=== PATIENT | female | born 1935 | race Caucasian/White ===

== ENCOUNTER 2017-07-26 10:13 | Outpatient (CLI) | payer MEDICARE ==
--- NOTE | 2017-07-26 12:00 | RAD ---
TWO VIEWS LUMBAR SPINE: HISTORY: Back pain. TECHNIQUE: AP and lateral views of the lumbar spine are obtained on 07/26/2017. FINDINGS: Two views of the lumbar spine demonstrate pedicle screws with fusion of the L3, L4, and L5 levels. D egenerative changes are seen at the L2-L3 intervertebral disk space, as well as the L5-S1 disk spaces . This is compatible with severe degenerative changes above and below the fusion level. No other acute lumbar spine fracture is seen. Heterotopic bone is seen adjacent to the right hip. IMPRESSION: Surgical changes seen in the lumbar spine. No significant interval changes noted since the previous comparison radiograph from 04/28/2017. POS: [facility]
== END 2017-07-26 10:14 | disposition home or self-care (01) ==
LOC: TBSIIMAG 10:13
PROVIDERS: ATTEND Neurological Surgery
DX: M54.16 Radiculopathy, lumbar region (principal)
CPT/HCPCS: 72100

== ENCOUNTER 2019-04-28 00:33 | Inpatient (IN) | payer MEDICARE ==
[2019-04-28 01:06] LABS: Bacteria/HPF 2+ HPF (None Seen); Bilirubin Negative (Negative); Blood, Urine Trace (Negative); Clarity Turbid (Clear); Glucose, Urine (Dipstick) Normal (Negative); Leukocyte 500 Leu/uL (Negative); Nitrite 1+ (Negative); Protein, Urine (Dipstick) 100 mg/dL (Neg-Trace); Squamous Epithelial 0-3 HPF (0-3); Urobilinogen Normal mg/dL (Less than 2); WBC/HPF Greater than 50 HPF (0-3)
[2019-04-28 01:19] LABS: Hemoglobin 9.8 g/dL (12.0-16.0); Mean Corpuscular HGB CONC 32.3 g/dL (32.0-36.0); Mean Corpuscular Hemoglobin 32.3 pg (27.0-31.0); Mean Corpuscular Volume 99.9 fL (78.0-98.0); Mean Platelet Volume 6.1 fL (7.4-10.4); Platelet Count 218 thou/uL (130-400); Red Blood Cell (RBC) Count 3.02 mill/uL (4.20-5.40); White Blood Cell (WBC) Count 11.3 thou/uL (4.8-10.8)
[2019-04-28] MEDS ORDERED: Piperacillin/Tazobactam 4.5 GM VIAL ONE (01:19)
[2019-04-28] MEDS ORDERED: Acetaminophen 500 MG TAB ONE (01:19)
[2019-04-28 01:21] LABS: ALT (SGPT) 25 U/L (8-55); AST (SGOT) 41 U/L (5-34); Albumin 3.9 g/dL (3.4-4.8); Alkaline Phosphatase 100 U/L (40-150); Anion Gap 18 mmol/L (10-20); BUN (Urea Nitrogen) 22 mg/dL (9.8-20.1); Band 15 % (5-11); Bilirubin, Total 0.3 mg/dL (0.2-1.2); Calc. Creatinine Clearance 0 mL/min (70-130); Calcium 8.8 mg/dL (7.8-10.44); Carbon Dioxide 24 mmol/L (23-31); Chloride 94 mmol/L (98-107); Estimated GFR-MDRD 70; Globulin 2.9 g/dL (2.4-3.5); Glucose 112 mg/dL (83-110); Hypochromia SLIGHT = 6-15 cells (100X) (0-5/hpf); Lymphocytes 2 % (21-51); MDiff Complete? YES; Monocytes 1 % (0-10); Neutrophil 82 % (42-75); Platelet Morphology Comment Appears Adequate; Potassium 3.8 mmol/L (3.5-5.1); Protein, Total 6.8 g/dL (6.0-8.3); Sodium 132 mmol/L (136-145)
[2019-04-28 01:44] LABS: CKMB 1.3 ng/mL (0-6.6)
[2019-04-28 04:57] LABS: Troponin I 0.237 ng/mL (< 0.028)
[2019-04-28 06:02] VITALS: BMI 22.7
[2019-04-28] MEDS ORDERED: Ondansetron ODT 4 MG TAB PO PRN (06:03)
[2019-04-28] MEDS ORDERED: Acetaminophen 650 MG Suppository PR PRN (06:03)
[2019-04-28] MEDS ORDERED: Ondansetron PF 4 MG/2 ML Vial IVP PRN (06:03)
[2019-04-28] MEDS ORDERED: Prevnar 13-Val Conj/PF 0.5 ML SYRINGE IM ONE (06:45)
[2019-04-28] MEDS ORDERED: HYDROcodone/Acetaminophen 10/325 mg Tablet PO SCH ×2 (07:00)
--- NOTE | 2019-04-28 07:17 | HP ---
CODE STATUS: Full code. TIME OF EVALUATION: 6:00 a.m. PRIMARY CARE PHYSICIAN: Dr. Shama Antonio. CHIEF COMPLAINT: Generalized weakness and change in mental status. HISTORY OF PRESENT ILLNESS: This is an 83-year-old female patient with past medical history of atrial fibrillation, indwelling Pichardo catheter, and hypothyroidism, came to the hospital after having severe generalized weakness associated with change in mental status. No clear triggers, no alleviating factors. The symptoms started insidiously and has been gradually getting worse. The symptoms are severe. REVIEW OF SYSTEMS: All other systems were reviewed and negative except for the findings mentioned above. PAST MEDICAL HISTORY: As mentioned in the HPI. PAST SURGICAL HISTORY: Significant for back surgery; knee replacement, multiple ; right foot surgery. FAMILY HISTORY: Reviewed, noncontributory to current presentation. PSYCHIATRIC HISTORY: No previous psych history. SOCIAL HISTORY: No alcohol. No drugs. No smoking history. KNOWN ALLERGIES: No known drug allergies. REPORTED MEDICATIONS: 1. Art. 2. Metoprolol. 3. Gabapentin. 4. Pantoprazole. 5. Potassium chloride. 6. Vitamin D3. 7. Levothyroxine. 8. Promethazine. 9. Oxybutynin chloride. 10. Iron. 11. B12. 12. Colace. 13. Amitriptyline. 14. Aspirin 81. 15. Amiodarone. 16. Furosemide. 17. Clopidogrel. 18. Myrbetriq. PHYSICAL EXAMINATION: VITAL SIGNS: On presentation; blood pressure 88/49 with heart rate 101, respiratory rate was 20, temperature 102.9, pain was 7/10, and oxygen saturation was 96% on room air. The patient got IV fluids. The blood pressure improving, after some time did drop again and then after A third liter, blood pressure has been sustaining in the good range. GENERAL APPEARANCE: The patient is alert, oriented, not in acute distress. The mentation has improved. HEENT: Eyes, normal conjunctivae. Moist oral mucosa. Anicteric. No JVD. RESPIRATORY: Bilateral air entry. No rales. No wheezes. Symmetric expansion. CARDIOVASCULAR: Normal rate. Regular rhythm. No murmurs. No gallop. No edema. ABDOMEN: Soft. Normal bowel sounds. MUSCULOSKELETAL: Baseline range of motion and strength. SKIN: Warm, intact. No pallor. No rash. No redness. GENITOURINARY: The patient has indwelling suprapubic catheter. NEURO: The patient has bilateral lower extremity dysesthesias from peripheral neuropathy. No focal weakness. IMAGING DATA: Radiology; the patient has a chest x-ray, it was negative. No acute cardiopulmonary process. Abdomen and pelvis CT scan showed colon is moderately and diffusely distended with fluids and semisolid food, the official report from Radiology is pending. LABORATORY DATA: Reviewed. The patient has a white count 13.3, hemoglobin 9.8 , MCV 99.9, and platelet count 218. Sodium is 132, potassium 3.8, chloride 94, carbon dioxide 24, anion gap 18, BUN 22, creatinine 0.79, GFR 70, and glucose 112. LFTs were negative. Troponin 0.231, the second one 0.237. The urine was positive with elevated white count. ASSESSMENT AND PLAN: The patient will be placed in the hospital with following medical problems: 1. Urinary tract infection. The patient has a positive UA. We will follow up cultures. We will treat accordingly. 2. Non-ST segment elevation myocardial infarction with troponin 0.231 on 2 occasions. This is likely secondary to non-ST segment elevation myocardial infarction type 2 secondary to sepsis. We will trend troponins. We will monitor. We will treat accordingly. 3. Hyponatremia, sodium 132. We will monitor and treat accordingly. This is mild, no need for any acute intervention at this point. 4. Chronic normocytic anemia. This is likely secondary to anemia of chronic disease, this is stable. We will monitor, can be followed as outpatient. 5. Severe sepsis. The patient has recurrent episodes of hypotension that has improved after aggressive hydration. We will continue to monitor in IMCU. If blood pressure keeps dropping, the patient may need vasopressors. The patient is already on antibiotics. We will continue for now. We will follow sensitivity and treat accordingly. 6. Hypothyroidism. Continue hormone replacement. 7. History of atrial fibrillation. The patient presented with rate control.reconcile home meds 8. Deep venous thrombosis prophylaxis. Job ID: [id number] [facility]
[2019-04-28] MEDS ORDERED: Metoprolol Tartrate 5 MG/5 ML VIAL ONE (07:54)
[2019-04-28] MEDS ORDERED: Metoprolol Tartrate 5 MG/5 ML VIAL IVP SCH (08:00)
--- NOTE | 2019-04-28 08:09 | CT ---
PRELIMINARY REPORT/[facility]/EMERGENCY AFTER HOURS PROCEDURE: EXAM: CT Abdomen and Pelvis With Contrast EXAM DATE/TIME: 04/28/2019 1:39 AM CLINICAL HISTORY: 83 years old, female; Abdominal pain; Prior surgery; Patient HX: Er 5. 83 y/o F presents to ED via EM S transport for generalized weakness. PT C/O abd pain (generalized), constipation. Surgical HX of hys terectomy TECHNIQUE: Imaging protocol: Computed tomography images of the abdomen and pelvis with intravenous contrast. COMPARISON: No relevant prior studies available. FINDINGS: Tubes, catheters and devices: Suprapubic cystostomy catheter. Urinary bladder otherwise unremarkable. Lungs: Bibasilar pulmonary scarring/subsegmental atelectasis. Heart: Cardiomegaly. Cardiac device present. Liver: Normal. No mass. Gallbladder and bile ducts: Prior cholecystectomy. There is intra-and extrahepatic biliary ductal dil atation. Findings are likely a result of age and postcholecystectomy state given that there is no vis ible obstructing choledocholithiasis or pancreatic head mass and the distal CBD tapers normally as it approaches the duodenum. Pancreas: Normal. No ductal dilation. Spleen: Normal. No splenomegaly. Adrenals: Normal. No mass. Kidneys and ureters: Normal. No hydronephrosis. Stomach and bowel: Colon is moderately and diffusely distended with fluid and semisolid stool. Mild g aseous distention of the nondependent portions of the bowel may contribute to patient discomfort but is not pathologic. No bowel wall thickening or intestinal obstruction. Appendix: Appendix not visualized. No evidence of appendicitis. Intraperitoneal space: Normal. No free air. No significant fluid collection. Vasculature: Normal. No abdominal aortic aneurysm. Lymph nodes: Normal. No enlarged lymph nodes. Bladder: See Tubes, Catheters And Devices Finding. Reproductive: Prior hysterectomy. Bones/joints: Vertebral fusion hardware. Soft tissues: Unremarkable. IMPRESSION: Colon is moderately and diffusely distended with fluid and semisolid stool. Thank you for allowing us to participate in the care of your patient. Dictated and Authenticated by: Jos Ralph MD 04/28/2019 2:45 AM Central Time ([place] & [place]) FINAL REPORT ABDOMEN AND PELVIS CT WITH CONTRAST: FINDINGS/IMPRESSION: The report is in general agreement with the above-provided preliminary interpretation. There is extensive dilatation of the colon due to fluid and stool which may be on the basis of a coli tis. Given the degree of colonic distention at the rectum, there is a component of longstanding cons tipation. Slight wall prominence of this region is present without significant surrounding inflammat ion making stercoral colitis less likely. Correlate clinically in this regard. POS: [facility]
[2019-04-28 08:18] LABS: Troponin I 0.257 ng/mL (< 0.028)
[2019-04-28] MEDS ORDERED: POLYETHYLENE GLYCOL 17 GM PO PRN (08:28)
[2019-04-28] MEDS ORDERED: Digoxin 0.5 MG/2 ML AMP SLOW IVP SCH (08:30)
--- NOTE | 2019-04-28 08:36 | PDOC.HOSPP ---
- Subjective Encounter Date: 04/28/19 Encounter Time: 08:34 Subjective: Called by RN to see patient due to afib RVR plus low bp - Objective Vital Signs & Weight: Vital Signs (12 hours) Temp Pulse Ox 04/28/19 07:22 99.9 F H 04/28/19 05:45 96 04/28/19 05:25 98.9 F Weight Weight 132 lb 5 oz Most Recent Monitor Data Heart Rate from ECG 122 NIBP 147/103 NIBP BP-Mean 117 Respiration from ECG 29 SpO2 91 Result Diagrams: 04/28/19 00:44 04/28/19 00:44 ROS - Medication Medications: Active Medications Generic Name Dose Route Start Last Admin Trade Name Freq PRN Reason Stop Dose Admin Hydrocodone Bitart/Acetaminophen 1 tab 04/28/19 07:00 04/28/19 07:30 [place] 10/325 PO 04/28/19 09:00 1 tab NOW JOEL Administration - Exam NAD, awake alert, ill appearing Eye: PERRL, anicteric sclera, scleral icterus ENT: normocephalic atraumatic, no oropharyngeal lesions, moist mucosa, dry oral mucosa Neck: supple, symmetric, no JVD, no thyromegaly, no lymphadenopathy, no carotid bruit, JVD Heart: RRR, no murmur, no gallops, no rubs, normal peripheral pulses, irregular , diminshed peripheral pulses, murmur present, II/IV, III/IV Respiratory: CTAB, no wheezes, no rales, no ronchi, normal chest expansion, no tachypnea, normal percussion, rales, rhonchi, tachypneic, wheezes Gastrointestinal: soft, non-tender, non-distended, normal bowel sounds, no palpable masses, no hepatomegaly, no splenomegaly, no bruit, no guarding, no rigidity, tender to palpation, distended, diminished bowl sounds, voluntary guarding Hosp A/P - Plan Digoxin 0.25 mg IVP, lopressor 5 mg IVP, cardiology and ID consulted.
[2019-04-28] MEDS ORDERED: Ibuprofen 600 MG TAB PO PRN (08:37)
[2019-04-28] MEDS ORDERED: Polyethylene Glycol 3350 17 GM Packet PO PRN (08:38)
[2019-04-28] MEDS ORDERED: Sodium Chloride 0.9% 500 ML IV SCH (08:45)
[2019-04-28] MEDS: Acetaminophen 325 MG TAB PO PRN (08:48)
[2019-04-28] MEDS: Enoxaparin Sodium 40 MG/0.4 ML SYRINGE SC SCH (08:50)
[2019-04-28] MEDS: Ferrous Sulfate 325 MG TAB PO SCH (08:50)
[2019-04-28] MEDS: Gabapentin 300 MG CAP PO SCH ×4 (08:50→20:36)
[2019-04-28] MEDS: Cyanocobalamin (Vitamin B-12) 1,000 MCG TAB PO SCH (08:50)
[2019-04-28] MEDS: Oxybutynin ER 5 MG TAB PO SCH (08:51)
[2019-04-28] MEDS: Levothyroxine Sodium 50 MCG TAB PO SCH (08:51)
[2019-04-28] MEDS: Metoprolol Tartrate 25 MG TAB PO SCH (08:51)
[2019-04-28] MEDS ORDERED: Non-Formulary Item 1 EACH (Iron [Iron] 27 MG) PO SCH (09:00)
[2019-04-28] MEDS ORDERED: Non-Formulary Item 1 EACH (Cholecalciferol (Vitamin D3) [Vitamin D3] 1,000 UNIT) PO SCH (09:00)
[2019-04-28] MEDS ORDERED: Potassium Chloride 20 MEQ TAB PO SCH ×2 (09:00)
[2019-04-28] MEDS ORDERED: CYANOCOBALAMIN 1000 MG PO SCH (09:00)
[2019-04-28] MEDS ORDERED: Metoprolol Tartrate 50 MG TAB PO SCH (09:00)
--- NOTE | 2019-04-28 09:09 | RAD ---
CHEST 1 VIEW: HISTORY: Sepsis. FINDINGS: Diminished lung volume, likely due to poor inspiratory effort. Patchy interstitial opacities are pre sumed to be due to chronic change. Atherosclerosis of the aorta. Normal cardiac silhouette. Left-s ided transvenous pacemaker terminates in the region of the right atrium and right ventricle. IMPRESSION: No acute cardiopulmonary process. POS: [facility]
[2019-04-28] MEDS: Piperacillin/Tazobactam 4.5 GM in Sodium Chloride 0.9% 100 ML IVPB SCH ×2 (09:25→17:56)
[2019-04-28] MEDS ORDERED: ISOVUE-370 76%-LOCM 1 ML ONE (11:12)
--- NOTE | 2019-04-28 11:25 | CON ---
DATE OF CONSULTATION: HISTORY OF PRESENT ILLNESS: Melisa Gallegos is an 83-year-old female, who presented to the ER with marked weakness, somewhat confusion and fever. She had a rapid heart rate. Family apparently called 911 as per the history. She is in the MICU. REASON FOR CONSULTATION: She is probably uroseptic. PAST MEDICAL HISTORY: Pertinent for hypertension, neuropathy, previous apparently SVT. PAST SURGICAL HISTORY: Apparently included multiple including gallbladder surgery, hernia surgery, hysterectomy, knee surgery, ankle surgery, back surgery. SOCIAL HISTORY: Tobacco, none. Alcohol, none. HOME MEDICATIONS: Apparently include: 1. Phenergan. 2. Protonix. 3. Oxybutynin. 4. Metoprolol 25. 5. Synthroid 50. 6. Hydrocodone. 7. Gabapentin. 8. She now is on Zosyn. ALLERGIES: NONE. REVIEW OF SYSTEMS: Otherwise, 10-point negative. PHYSICAL EXAMINATION: VITAL SIGNS: Blood pressure 81/41, temperature 100.1, pulse is 80, saturations . GENERAL: Awake, alert, responsive. HEENT: Mucous membranes are dry. CHEST: No wheezing. CARDIAC: Normal S1, S2. No gallops. ABDOMEN: No masses. LABORATORY DATA: Sodium 132. Troponin is elevated. Urine shows UTI. White count 11,000, H and H 9 and 30, platelet count is normal, 82 segs, 15 bands. ASSESSMENT: 1. Urosepsis. 2. Supraventricular tachycardia. 3. Hypertension. PLAN: I have ordered IV fluids, cortisol level. Supportive care. Continue home medication. Pulmonary will follow while in the MICU. Consultation note, 70 minutes, 50% direct patient care. Job ID: [id number]
[2019-04-28] MEDS: Hydrocortisone Sod Succ/PF 100 mg/2 ml Vial IVP SCH ×3 (11:38→23:47)
--- NOTE | 2019-04-28 12:05 | CON ---
DATE OF CONSULTATION: 04/28/2019 REASON FOR CONSULTATION: Atrial fibrillation with sepsis. HISTORY OF PRESENT ILLNESS: Ms. Gallegos is an 83-year-old woman with past history of atrial fibrillation. The history is very limited. She is confused. She is currently on amiodarone, but not on anticoagulation therapy. She states her is Dr. Nj. She states her stripping and booking machine operator is in consultation, but cannot state who it is. She has not been seen or followed by [facility] in the past. She recently presented with sepsis. This is likely UTI. Fever of 103. PAST MEDICAL HISTORY: Atrial fibrillation, knee surgery, back surgery, foot surgery. SOCIAL HISTORY: No current tobacco or alcohol use. ALLERGIES: NONE. MEDICATIONS: Include metoprolol, [place], gabapentin, pantoprazole, potassium, levothyroxine, Plavix, amiodarone, aspirin, amitriptyline, Colace, iron, oxybutynin, promethazine. REVIEW OF SYSTEMS: Unobtainable. PHYSICAL EXAMINATION: GENERAL: The patient is confused. VITAL SIGNS: Blood pressure 81/48, pulse one teens to 120s, T-max 102.5. Current temperature 100.1. NEUROLOGIC: The patient is alert and oriented x3 with no focal neurologic deficits. HEENT: Sclerae without icterus. Mouth has moist mucous membranes with normal pallor. NECK: No JVD. Carotid upstroke brisk. No bruits bilaterally. LUNGS: Clear to auscultation with unlabored respirations. BACK: No scoliosis or kyphosis. CARDIAC: Irregularly irregular rhythm with normal S1 and S2. No S3 or S4 noted. No significant rubs, murmurs, thrills, or gallops noted throughout the precordium. PMI is not displaced. There is no parasternal heave. ABDOMEN: Soft, nontender, nondistended. No peritoneal signs present. No hepatosplenomegaly. No abnormal striae. EXTREMITIES: 2+ femoral and 2+ dorsalis pedis pulses. No cyanosis, clubbing, or edema. SKIN: No gross abnormalities. LABORATORY DATA: Include white blood cell count 11.3, hemoglobin 9.8, hematocrit 30.2, platelet count of 218. Creatinine 0.79. Peak troponin 0.2. Previous echo none. IMPRESSION: 1. Likely urosepsis. 2. Atrial fibrillation, likely chronic. 3. Encephalopathy. RECOMMENDATIONS: At this point, we will give IV fluids with a 500 mL bolus given hypotension. This will likely help with her heart rate. We will also add digoxin if needed and add Cardizem instead of beta connie therapy. There seems to be less effect with hypotension. Continue antibiotic treatment. We will try and obtain further records from her family. Job ID: [id number]
[2019-04-28] MEDS ORDERED: Norepinephrine 8 MG in Sodium Chloride 0.9% 250 ML 242 ML IVPB SCH (13:15)
[2019-04-28] MEDS ORDERED: Meropenem 1 GM in Sodium Chloride 0.9% 100 ML IVPB SCH (14:00)
[2019-04-28] MEDS: MEROPENEM 1 GM/50 ML 1 GM in Premix Bag 1 BAG IVPB SCH ×2 (15:27→21:29)
--- NOTE | 2019-04-28 15:42 | RAD ---
Exam: Chest one view HISTORY:Central line placement Comparison: 04/28/2019 FINDINGS: Cardiac silhouette:Stable cardiac silhouette. Aorta: Unremarkable Pulmonary vessels: Normal Costophrenic angles: Stable blunting of the left and right costophrenic angles LUNGS: Persistent diminished lung volumes with elevation of the right hemidiaphragm. Patchy interstit ial and alveolar opacities do remain. Lines and tubes: Interval placement of a right-sided vascular catheter with the distal tip projecting over the right atrium. Stable left-sided transvenous pacemaker. Pneumothorax: None Osseous abnormalities: None IMPRESSION: 1. Interval placement of a right-sided vascular catheter. No pneumothorax.
--- NOTE | 2019-04-28 17:27 | PDOC.OP ---
Operative Note - Operative Note Operative Note: PROCEDURE: Right internal jugular central venous catheter placement with ultrasound guidance. DATE: 04/28/2019 SURGEON: Sheyla Mckinley M.D. PREOPERATIVE DIAGNOSIS: Hypotension requiring pressors, presumably due to urosepsis. PROCEDURE IN DETAIL: After informed consent was obtained the patient was prepped and draped in standard sterile fashion and placed in Trendelenburg position. A sterile ultrasound probe was used to identify the patent compressible right internal jugular vein and local anesthesia was infused the skin and subcutaneous tissues overlying this. The vein was accessed under direct ultrasound guidance and a wire threaded through the needle. The needle was removed leaving the wire in place which was confirmed by ultrasound to be within the patent compressible vein. The skin was incised and the tract was dilated. A triple-lumen catheter was placed over the wire and secured to the skin at 4 locations. A Biopatch and Tegaderm dressing was placed. All 3 ports easily aspirated dark venous nonpulsatile blood and easily flushed without resistance. A portable chest x-ray was ordered to check position. There were no immediate complications. Estimated blood loss is minimal. There were no specimens. Of note patient had bruising of the skin even just with injection of local through a 23-gauge needle. She had oozing from all of the injection sites and around her catheter requiring pressure dressing. She takes Plavix but no other blood thinners.
--- NOTE | 2019-04-28 21:42 | PDOC.EVN ---
Event Note - Event Note Event Note: Patient takes soma at night along with several other home medications. Day team to please address appropriate home meds to be restarted for this patient at night.
[2019-04-29] MEDS: Piperacillin/Tazobactam 4.5 GM in Sodium Chloride 0.9% 100 ML IVPB SCH (00:30)
[2019-04-29] MEDS ORDERED: hydrALAZINE 20 MG/ML VIAL SLOW IVP SCH (02:30)
[2019-04-29] MEDS: Acetaminophen 325 MG TAB PO PRN ×2 (03:57→20:42)
[2019-04-29 04:48] LABS: Band 24 % (5-11); Hemoglobin 8.1 g/dL (12.0-16.0); Lymphocytes 10 % (21-51); MDiff Complete? YES; Mean Corpuscular HGB CONC 31.2 g/dL (32.0-36.0); Mean Corpuscular Hemoglobin 31.4 pg (27.0-31.0); Monocytes 2 % (0-10); Neutrophil 64 % (42-75); Platelet Count 127 thou/uL (130-400); Platelet Morphology Comment Appears Adequate; RBC Distribution Width 16.9 % (11.5-14.5); Red Blood Cell (RBC) Count 2.59 mill/uL (4.20-5.40); White Blood Cell (WBC) Count 21.9 thou/uL (4.8-10.8)
[2019-04-29 04:50] LABS: Anion Gap 16 mmol/L (10-20); BUN (Urea Nitrogen) 23 mg/dL (9.8-20.1); Calc. Creatinine Clearance 56 mL/min (70-130); Calcium 8.7 mg/dL (7.8-10.44); Carbon Dioxide 20 mmol/L (23-31); Chloride 99 mmol/L (98-107); Estimated GFR-MDRD 74; Glucose 97 mg/dL (83-110); Potassium 4.4 mmol/L (3.5-5.1); Sodium 131 mmol/L (136-145)
[2019-04-29] MEDS: Hydrocortisone Sod Succ/PF 100 mg/2 ml Vial IVP SCH (05:33)
[2019-04-29] MEDS: MEROPENEM 1 GM/50 ML 1 GM in Premix Bag 1 BAG IVPB SCH ×3 (05:33→22:00)
[2019-04-29] MEDS: HYDROcodone/Acetaminophen 10/325 mg Tablet PO PRN ×2 (08:32→12:34)
--- NOTE | 2019-04-29 08:32 | PDOC.CTH ---
Cardiology Progress Note - Subjective Doing much better. Off pressors. BP elevated. In SR - Objective Vital Signs Temp Pulse BP 04/29/19 04:00 97.0 F L 04/29/19 02:30 71 200/104 H 04/28/19 23:00 97.2 F L Weight 132 lb 7.965 oz 04/28/19 04/29/19 04/30/19 06:59 06:59 06:59 Intake Total 3080 Output Total 2 Balance 1058 - Physical Examination General/Neuro: NAD Neck: no JVD present Lungs: unlabored respirations Heart: PMI normal, RRR Abdomen: no HSM, NT/ND, soft Extremities: + femoral B - Labs Result Diagrams: 04/29/19 04:13 04/29/19 04:13 Troponin/CKMB CK-MB (CK-2) 1.3 ng/mL (0-6.6) 04/28/19 00:44 Troponin I 0.257 ng/mL (< 0.028) H 04/28/19 07:23 - Assessment/Plan Afib Urosepsis Dementia Hypotension Doing better Restart HTN meds Abx Avoid ACT for now given anemia of unknown etiology and unknown if afib secondary to underlying condition Add BB Pt on amiodarone but not sure who a p mechanic is. Will discuss with family
[2019-04-29] MEDS: Ferrous Sulfate 325 MG TAB PO SCH (08:33)
[2019-04-29] MEDS: Enoxaparin Sodium 40 MG/0.4 ML SYRINGE SC SCH (08:33)
[2019-04-29] MEDS: Metoprolol Tartrate 25 MG TAB PO SCH ×2 (08:33→20:05)
[2019-04-29] MEDS: Levothyroxine Sodium 50 MCG TAB PO SCH (08:34)
[2019-04-29] MEDS: Amiodarone 200 MG TAB PO SCH (08:34)
[2019-04-29] MEDS: Gabapentin 300 MG CAP PO SCH ×3 (08:34→20:05)
[2019-04-29] MEDS: Sodium Chloride 0.9% 1,000 ML IV SCH (08:40)
[2019-04-29] MEDS: Cyanocobalamin (Vitamin B-12) 1,000 MCG TAB PO SCH (08:40)
--- NOTE | 2019-04-29 09:30 | PRG ---
DATE OF SERVICE: 04/29/2019 SUBJECTIVE: Alicja Gallegos was transferred yesterday from MICU to ICU because she was hypertensive. OBJECTIVE: VITAL SIGNS: Her blood pressure is pretty much resolved at 176/100, pulse 120, respiratory rate 18. GENERAL: Awake, alert, responsive. HEAD, EYES, EARS, NOSE: She is having some pain generalized. CHEST: No wheezing or crackles. CARDIAC: Normal S1, S2. No gallops. ABDOMEN: No masses. LABORATORY DATA: Blood cultures growing E. coli. White count 21,000, H and H 8 and 26, platelet count is normal. Sodium 131. IMPRESSION: 1. Urosepsis, rare E. coli. 2. Questionable pneumonia. 3. Severe deconditioning. 4. DNR. 5. Hyponatremia. PLAN: Hydrocortisone will be discontinued. Cortisol level is elevated. We will continue meropenem. We will deescalate once we get all the cultures back. Cardiac SVT status is pretty much resolved. Hypertension was probably secondary to medication and sepsis. PT, supportive care. One half hour of critical time. Job ID: [id number]
[2019-04-29] MEDS: Oxybutynin ER 5 MG TAB PO SCH (09:39)
--- NOTE | 2019-04-29 13:05 | PDOC.HOSPP ---
- Subjective Encounter Date: 04/29/19 Encounter Time: 13:03 Subjective: Patient seen and examined, states she's in a lot of pain and would like pain medications, no other issues, son and daughter in law at bedside, all questions answered. - Objective Vital Signs & Weight: Vital Signs (12 hours) Temp Pulse BP 04/29/19 12:00 98 F 04/29/19 08:00 98.2 F 04/29/19 04:00 97.0 F L 04/29/19 02:30 71 200/104 H Weight Weight 132 lb 7.965 oz Most Recent Monitor Data Heart Rate from ECG 76 NIBP 157/100 NIBP BP-Mean 119 Respiration from ECG 17 SpO2 100 I&O: 04/28/19 04/29/19 04/30/19 06:59 06:59 06:59 Intake Total 3080 360 Output Total 2021 1400 Balance 1058 -1040 Result Diagrams: 04/29/19 04:13 04/29/19 04:13 ROS - Medication Medications: Active Medications Generic Name Dose Route Start Last Admin Trade Name Freq PRN Reason Stop Dose Admin Acetaminophen 650 mg 04/28/19 06:03 04/29/19 03:57 Tylenol PO 650 mg Q4H PRN Administration Headache/Fever/Mild Pain (1-3) Hydrocodone Bitart/Acetaminophen 1 tab 04/28/19 08:31 04/29/19 12:34 [place] 10/325 PO 1 tab Q4H PRN Administration Pain Amiodarone HCl 200 mg 04/29/19 09:00 04/29/19 08:34 Cordarone PO 200 mg DAILY JOEL Administration Cholecalciferol 1,000 units 04/28/19 09:00 04/29/19 08:40 Vitamin D3 PO 1,000 units DAILY JOEL Administration Cyanocobalamin 1,000 mcg 04/28/19 09:00 04/29/19 08:40 Vitamin B-12 PO 1,000 mcg DAILY JOEL Administration Enoxaparin Sodium 40 mg 04/28/19 09:00 04/29/19 08:33 Lovenox SC 40 mg 0900 JOEL Administration Ferrous Sulfate 325 mg 04/28/19 09:00 04/29/19 08:33 Feosol PO 325 mg DAILY JOEL Administration Gabapentin 600 mg 04/28/19 20:28 04/29/19 08:34 Neurontin PO 600 mg TID JOEL Administration Meropenem 1 gm/ Device 50 mls @ 100 mls/hr 04/28/19 14:00 04/29/19 05:33 IVPB 50 mls Q8HR JOEL Administration Norepinephrine Bitartrate 8 mg 250 mls @ 0 mls/hr 04/28/19 13:15 04/28/19 15: 19 / Sodium Chloride IVPB 250 mls INF JOEL Administration Protocol Titrate Sodium Chloride 1,000 mls @ 50 mls/hr 04/29/19 08:00 04/29/19 08:40 Normal Saline 0.9% IV 1,000 mls .Q20H JOEL Administration Levothyroxine Sodium 50 mcg 04/28/19 09:00 04/29/19 08:34 Synthroid PO 50 mcg DAILY JOEL Administration Oxybutynin Chloride 5 mg 04/28/19 09:00 04/29/19 09:39 Ditropan Xl PO 5 mg DAILY JOEL Administration Pantoprazole Sodium 40 mg 04/28/19 09:00 04/29/19 08:34 Protonix PO 40 mg DAILY JOEL Administration Potassium Chloride 20 meq 04/28/19 21:00 04/29/19 08:33 Klor-Con PO 20 meq BID JOEL Administration Sodium Chloride 10 ml 04/28/19 09:00 04/29/19 08:35 Flush - Normal Saline IVF 10 ml Q12HR JOEL Administration - Exam awake alert General - other findings: +appears in pain Eye: PERRL, anicteric sclera ENT: normocephalic atraumatic, no oropharyngeal lesions Neck: supple, symmetric, no JVD, no thyromegaly Heart: RRR, no murmur, no gallops, no rubs Respiratory: CTAB, no wheezes, no rales, no ronchi Gastrointestinal: soft, non-tender, non-distended, normal bowel sounds Extremities: no cyanosis, no clubbing Hosp A/P (1) Urinary tract infection Status: Acute (2) Sepsis Code(s): A41.9 - SEPSIS, UNSPECIFIED ORGANISM Status: Acute (3) Hypothyroidism Code(s): E03.9 - HYPOTHYROIDISM, UNSPECIFIED Status: Acute (4) Hypotension Status: Acute - Plan - change pain medican regimen - cont with IV abx - cultures pending - labs in AM - hgb stable, low but stable - DC ibuprofen, risk of renal injury - vitals stable - case and plan d[facility] they understood and agreed with this plan.
[2019-04-29] MEDS: Morphine 2 MG/ML SYRINGE IVP PRN ×2 (15:59→20:03)
[2019-04-30] MEDS: Promethazine 25 MG TAB PO PRN ×2 (00:02→21:14)
[2019-04-30] MEDS: Morphine 2 MG/ML SYRINGE IVP PRN ×4 (00:02→17:24)
[2019-04-30] MEDS: Acetaminophen 325 MG TAB PO PRN ×3 (00:57→21:14)
[2019-04-30] MEDS: Sodium Chloride 0.9% 1,000 ML IV SCH (02:48)
[2019-04-30 04:43] LABS: Anion Gap 16 mmol/L (10-20); BUN (Urea Nitrogen) 25 mg/dL (9.8-20.1); Calc. Creatinine Clearance 69 mL/min (70-130); Calcium 8.6 mg/dL (7.8-10.44); Carbon Dioxide 22 mmol/L (23-31); Chloride 98 mmol/L (98-107); Estimated GFR-MDRD Greater than 90; Glucose 65 mg/dL (83-110); Potassium 4.1 mmol/L (3.5-5.1); Sodium 132 mmol/L (136-145)
[2019-04-30] MEDS: MEROPENEM 1 GM/50 ML 1 GM in Premix Bag 1 BAG IVPB SCH ×3 (05:21→20:06)
[2019-04-30 06:01] LABS: Band 9 % (5-11); Hemoglobin 7.5 g/dL (12.0-16.0); Hypochromia SLIGHT = 6-15 cells (100X) (0-5/hpf); Lymphocytes 14 % (21-51); MDiff Complete? YES; Macrocytosis SLIGHT = 6-15 cells (100X) (0-5/hpf); Mean Corpuscular HGB CONC 31.6 g/dL (32.0-36.0); Mean Corpuscular Hemoglobin 32.3 pg (27.0-31.0); Mean Platelet Volume 8.3 fL (7.4-10.4); Monocytes 2 % (0-10); Neutrophil 75 % (42-75); Platelet Count 32 thou/uL (130-400); Platelet Morphology Comment Appears Decreased; Polychromasia SLIGHT = 2-3 cells (100X) (0-2/hpf); RBC Distribution Width 16.7 % (11.5-14.5); Red Blood Cell (RBC) Count 2.33 mill/uL (4.20-5.40); White Blood Cell (WBC) Count 12.4 thou/uL (4.8-10.8)
[2019-04-30] MEDS ORDERED: Enoxaparin Sodium 40 MG/0.4 ML SYRINGE SC SCH (09:00)
--- NOTE | 2019-04-30 09:48 | PRG ---
DATE OF SERVICE: 04/30/2019 SUBJECTIVE: This morning, she is much better. She has developed severe thrombocytopenia, Zosyn was discontinued. Less short of breath, less pain. OBJECTIVE: VITAL SIGNS: Blood pressure 161/84, pulse 80, respiratory rate 18. CHEST: Decreased breath sounds. No wheezing. CARDIAC: Normal S1 and S2. No gallop. ABDOMEN: No masses. LABORATORY DATA: White count 12,000; H and H 7 and 23; platelet count is 32,000 , dropped from 127. Sodium 132. ASSESSMENT AND PLAN: 1. Escherichia coli sepsis secondary to urinary tract infection. 2. Severe deconditioning. 3. Hypotension, resolved. ALL heparin_ discontinued. Platelet antibody assay is being ordered. Continue meropenem, supportive care, PT, diet. We will follow. Job ID: [id number] [facility]
[2019-04-30] MEDS: Ferrous Sulfate 325 MG TAB PO SCH (09:50)
[2019-04-30] MEDS: Cyanocobalamin (Vitamin B-12) 1,000 MCG TAB PO SCH (09:50)
[2019-04-30] MEDS: Metoprolol Tartrate 25 MG TAB PO SCH ×2 (09:51→20:05)
[2019-04-30] MEDS: Levothyroxine Sodium 50 MCG TAB PO SCH (09:51)
[2019-04-30] MEDS: Amiodarone 200 MG TAB PO SCH (09:51)
[2019-04-30] MEDS: Gabapentin 300 MG CAP PO SCH ×3 (09:51→20:05)
[2019-04-30] MEDS: Oxybutynin ER 5 MG TAB PO SCH (10:30)
--- NOTE | 2019-04-30 13:27 | PQF ---
CLINICAL DOCUMENTATION IMPROVEMENT CLARIFICATION FORM: ICD-10 Updated PLEASE DO AN ADDENDUM TO THE PROGRESS NOTE WITH ANY DOCUMENTATION UPDATES OR ADDITIONS AND CARRY THROUGH TO DC SUMMARY. THANK YOU. DATE: 04/30/19 ATTN: DR. ULLOA Please exercise your independent, professional judgment in responding to the clarification form. Clinical indicators are provided on the bottom of this form for your review Please check appropriate box(es): [ ] Sepsis due to: UTI [ ] Sepsis due to: UTI D/T INDWELLING BARROS CATHETER [ ] SIRS due to non-infectious process (please specify etiology) [ ] with organ dysfunction [ ] without organ dysfunction [ ] Severe sepsis with acute organ dysfunction of: (Examples: respiratory failure, encephalopathy, acute kidney failure, other) [ x ] Septic Shock [ ] Localized infection without sepsis [ ] Other diagnosis [ ] Unable to determine In addition, please specify: Present on Admission (POA): [ x ] Yes [ ] No [ ] Unable to determine For continuity of documentation, please document condition throughout progress notes and discharge summary. Thank You. CLINICAL INDICATORS - SIGNS / SYMPTOMS / LABS ER NOTE: "UROSEPSIS" PROGRESS NOTE 04/29: "SEPSIS" TEMP 102.9 PULSE 105 BP 86/42 WBC 04/29: 21.9 BANDS 24 RISKS: UTI INDWELLING BARROS CATHETER TREATMENT: IV FLUIDS (ER-PRESENT) IV ZOSYN (ER) IV MEROPENEM (04/28-PRESENT) LEVOPHED (04/28) BLOOD CULTURES CRITICAL CARE MONITORING (This form is maintained as a part of the permanent medical record) 2014 [employer]. All Rights Reserved MARK [email or web address] Office: [phone] KAREN
[2019-04-30 16:35] LABS: Hemoglobin 8.2 g/dL (12.0-16.0); Platelet Count 21 thou/uL (130-400)
--- NOTE | 2019-04-30 19:18 | PDOC.HOSPP ---
- Subjective Encounter Date: 04/30/19 Encounter Time: 19:10 Subjective: f/u for E. coli septic shock likely from colonic source with colitis on CT imaging. Receiving Meropenem currently. Nursing noted platelets trending down on previous DVT ppx with Lovenox. Also noted blood in stool with clots but guaiac negative x 1. - Objective Vital Signs & Weight: Vital Signs (12 hours) Temp Pulse Pulse BP BP Pulse Ox 04/30/19 16:00 97.9 F 04/30/19 14:50 75 79 157/84 H 174/95 H 04/30/19 12:17 100 04/30/19 12:00 98 F 04/30/19 08:00 97.9 F 100 Weight Weight 132 lb 11.492 oz Most Recent Monitor Data Heart Rate from ECG 75 NIBP 171/114 NIBP BP-Mean 133 Respiration from ECG 18 SpO2 100 I&O: 04/29/19 04/30/19 05/01/19 06:59 06:59 06:59 Intake Total 3080 3000 630 Output Total 3647 810 Balance 1058 -645 -180 Result Diagrams: 04/30/19 16:21 04/30/19 04:00 Additional Labs: Microbiology 04/30/19 07:30 Stool - Unknown Stool Occult Blood (LATOSHA) - Final 04/28/19 00:50 Venous blood - Left Arm Blood Culture - Final Escherichia coli 04/28/19 00:44 Venous blood - Right Arm Blood Culture - Final Escherichia coli Laboratory Tests 04/28/19 04/28/19 04/28/19 00:44 00:44 00:44 WBC 11.3 H Hgb 9.8 L Plt Count 218 Band Neuts % (Manual) 15 H Sodium Lactic Acid 1.8 Troponin I 0.231 H Cortisol 04/28/19 04/28/19 04/28/19 04:13 07:23 11:15 WBC Hgb Plt Count Band Neuts % (Manual) Sodium Lactic Acid Troponin I 0.237 H 0.257 H Cortisol 45.30 04/29/19 04/29/19 04/30/19 04:13 04:13 05:20 WBC 21.9 H 12.4 H Hgb 8.1 L 7.5 L Plt Count 127 L 32 L Band Neuts % (Manual) 24 H 9 Sodium 131 L Lactic Acid Troponin I Cortisol Radiology Reviewed by me: Yes (CT abd/pel - large colonic dilation, fluid, mild inflammation) EKG Reviewed by me: Yes (Tele - SR) ROS - Medication Medications: Active Medications Generic Name Dose Route Start Last Admin Trade Name Freq PRN Reason Stop Dose Admin Acetaminophen 650 mg 04/28/19 06:03 04/30/19 04:38 Tylenol PO 650 mg Q4H PRN Administration Headache/Fever/Mild Pain (1-3) Amiodarone HCl 200 mg 04/29/19 09:00 04/30/19 09:51 Cordarone PO 200 mg DAILY JOEL Administration Cholecalciferol 1,000 units 04/28/19 09:00 04/30/19 09:50 Vitamin D3 PO 1,000 units DAILY JOEL Administration Cyanocobalamin 1,000 mcg 04/28/19 09:00 04/30/19 09:50 Vitamin B-12 PO 1,000 mcg DAILY JOEL Administration Ferrous Sulfate 325 mg 04/28/19 09:00 04/30/19 09:50 Feosol PO 325 mg DAILY JOEL Administration Gabapentin 600 mg 04/28/19 20:28 04/30/19 16:50 Neurontin PO 600 mg TID JOEL Administration Meropenem 1 gm/ Device 50 mls @ 100 mls/hr 04/28/19 14:00 04/30/19 13:40 IVPB 50 mls Q8HR JOEL Administration Norepinephrine Bitartrate 8 mg 250 mls @ 0 mls/hr 04/28/19 13:15 04/28/19 15: 19 / Sodium Chloride IVPB 250 mls INF JOEL Administration Protocol Titrate Sodium Chloride 1,000 mls @ 50 mls/hr 04/29/19 08:00 04/30/19 02:48 Normal Saline 0.9% IV 1,000 mls .Q20H JOEL Administration Levothyroxine Sodium 50 mcg 04/28/19 09:00 04/30/19 09:51 Synthroid PO 50 mcg DAILY JOEL Administration Metoprolol Tartrate 25 mg 04/29/19 21:00 04/30/19 09:51 Lopressor PO 25 mg BID JOEL Administration Oxybutynin Chloride 5 mg 04/28/19 09:00 04/30/19 10:30 Ditropan Xl PO 5 mg DAILY JOEL Administration Pantoprazole Sodium 40 mg 04/28/19 09:00 04/30/19 09:51 Protonix PO 40 mg DAILY JOEL Administration Potassium Chloride 20 meq 04/28/19 21:00 04/30/19 09:50 Klor-Con PO 20 meq BID JOEL Administration Promethazine HCl 25 mg 04/28/19 08:28 04/30/19 00:02 Phenergan PO 25 mg Q6H PRN Administration Nausea Sodium Chloride 10 ml 04/28/19 09:00 04/30/19 09:52 Flush - Normal Saline IVF 10 ml Q12HR JOEL Administration - Exam ill appearing General - other findings: pale Eye: PERRL, anicteric sclera ENT: normocephalic atraumatic, no oropharyngeal lesions, dry oral mucosa Neck: supple, symmetric, no JVD, no thyromegaly, no lymphadenopathy Heart: RRR, no gallops, no rubs, normal peripheral pulses Respiratory: CTAB, no wheezes, no rales, no ronchi Gastrointestinal: normal bowel sounds, no palpable masses, tender to palpation Gastrointestinal - other findings: SPT in place with dark shravan urine Extremities: no cyanosis, no clubbing, no edema Skin: no lesions, no rashes Neurological: no new deficit Musculoskeletal: generalized weakness Psychiatric: somnolent, lethargic Hosp A/P (1) Septic shock Code(s): A41.9 - SEPSIS, UNSPECIFIED ORGANISM; R65.21 - SEVERE SEPSIS WITH SEPTIC SHOCK Status: Acute Plan: Secondary to E. coli bacteremia from likely indwelling suprapubic catheter in conjunction with colitis, continue Meropenem, IVF's, off vasopressor support (2) E coli bacteremia Code(s): R78.81 - BACTEREMIA Status: Acute Plan: See #1 above, continue Meropenem (3) Thrombocytopenia Code(s): D69.6 - THROMBOCYTOPENIA, UNSPECIFIED Status: Acute Plan: Likely multifactorial given sepsis, Lovenox and colitis, d/c all anticoagulants and NSAID's, serial monitoring, transfuse 10 pack platelets (4) Urinary tract infection Status: Acute Plan: Suspected with indwelling SPT (5) Macrocytic anemia Code(s): D53.9 - NUTRITIONAL ANEMIA, UNSPECIFIED Status: Acute Plan: Serial H/H, Consult GI service, avoid anticoagulation (6) Hyponatremia Code(s): E87.1 - HYPO-OSMOLALITY AND HYPONATREMIA Status: Chronic Plan: Stable, chronic - Plan continue antibiotics, PT/OT, social professionals, DVT proph w/SCDs Continue aggressive supportive mgmt Platelet transfusion today Consult GI service Avoid anticoagulation and NSAIDs Pain control with Morphine Sulfate 4mg IV q4h prn AM lab: BMP, CBC
[2019-04-30] MEDS: Morphine 4 MG/ML VIAL SLOW IVP PRN (20:31)
[2019-04-30] MEDS: Amitriptyline HCl 25 MG TAB PO SCH (21:14)
--- NOTE | 2019-04-30 22:44 | CON ---
DATE OF CONSULTATION: 04/30/2019 REASON FOR CONSULTATION: Hematochezia, abdominal pain. CONSULTING PROVIDER: Dr. Stephen Up. HISTORY OF PRESENT ILLNESS: The patient is an 83-year-old female with past medical history of atrial fibrillation, indwelling Pichardo catheter, and hypothyroidism, who was initially admitted to the hospital for generalized weakness and altered mental status. While in the ER, she was noted to have tachycardia and hypotension as well as a significantly elevated white blood cell count that was concerning for infection. She was given multiple liters of normal saline that initially did not respond to management and was subsequently then transferred to the ICU for further management. She was ultimately diagnosed with urosepsis and placed on appropriate antibiotic therapy and has been responding well to this therapy up until the last 24 to 48 hours. However, earlier today, she had a bowel movement that was consistent of hematochezia, characterized as bright red blood per rectum in the form of more blood clots than anything else, but no associated pain with having this bowel movement. This happened only once early this afternoon and has not subsequently recurred. Upon interviewing the patient, she was somewhat somnolent during the course of the interview and was somewhat tangential in terms of her answers, but did explain that she was having increased right-sided abdominal pain that she characterizes a sharp/stabbing type sensation, is constant and reaching a 10/10 in severity. She could not elaborate on any clear alleviating or exacerbating factors, but per nursing staff, she had been getting some pain medication with [id number] results. Otherwise, per conferring with the patient and nursing staff, there has been no evidence of nausea, vomiting, fevers, chills, hematemesis, melena, or constipation recently during the course of this hospitalization. REVIEW OF SYSTEMS: A 10-category review of systems was attempted, but unable to complete due to the patient's somnolence during the course of the interview. PAST MEDICAL HISTORY: As per HPI. PAST SURGICAL HISTORY: Back surgery, knee replacement, and multiple right foot surgeries. FAMILY HISTORY: Attempted to obtain per chart review, but no stated history of GI malignancies. SOCIAL HISTORY: No history of alcohol, tobacco, or illicit drug use. OUTPATIENT MEDICATIONS: Reviewed. ALLERGIES: NO KNOWN DRUG ALLERGIES. PHYSICAL EXAMINATION: VITAL SIGNS: Temperature 97.6, pulse 86, blood pressure 189/96, respiratory rate 16, saturating 100% on 2 L nasal cannula. GENERAL: The patient was lying in bed, in [id number] distress. Alert and oriented x2, but was somewhat somnolent during the course of the interview. HEENT: Normocephalic and atraumatic. NECK: Supple. No JVD or scleral icterus noted. CARDIOVASCULAR: Irregularly irregular rhythm, but normal rate. No discernible murmurs, gallops, or rubs. RESPIRATORY: Clear to auscultation bilaterally with no discernible wheezes or rales. ABDOMEN: Normoactive bowel sounds. Soft, nondistended. Tenderness to palpation to both light and deep palpation in all abdominal quadrants. EXTREMITIES: No cyanosis, clubbing, or edema. LABORATORY DATA: CBC with a white blood cell count of 12.4, hemoglobin 8.2, hematocrit 25.6, platelets 21. Chemistry with a sodium of 132, potassium 4.1, chloride 98, CO2 of 22, BUN 25, creatinine 0.61, glucose 65. IMAGING DATA: CT of the abdomen and pelvis was obtained on April 28, 2019, which showed a suprapubic catheter in place. Prior surgical change consistent with a cholecystectomy was noted along with intra and extrahepatic dilatation consistent with post cholecystectomy changes. The colon was also moderately and diffusely distended with fluid and semi-solid stool, but no evidence of bowel wall thickening, but could be indicative of a possible colitis given the dilation. ASSESSMENT AND PLAN: The patient is an 83-year-old female with past medical history of atrial fibrillation, indwelling Pichardo catheter, and hypothyroidism, initially presenting with urosepsis with hypotension, but now with abdominal pain and hematochezia concerning for ischemic colitis. Ischemic colitis. The patient was initially admitted to the hospital with generalized weakness and altered mental status that was presumably secondary to a urinary tract infection and resultant urosepsis. She was extremely hypotensive on admission that was initially not responsive to IV fluid administration and did at one point during this hospitalization require pressor support. She has, however, responded well to treatment and has been doing well with antibiotic therapy. However, over the last 24 hours, she has been having increased generalized abdominal pain in addition to the appearance of hematochezia, characterized as bright red blood clots with a bowel movement earlier today with the clots seen coating the stool, not necessarily mixed with the stool. Guaiac testing at that time was negative. However, given her episodes of hypotension on admission, the distended bowel seen during the initial CT of the abdomen and pelvis and now the appearance of blood clots, it is very consistent with ischemic colitis and rastafarian of the blood supply to the mucosal surface of the colon. RECOMMENDATIONS: 1. Would continue to monitor her H and H and transfuse as necessary to maintain an H and H of 7/21. 2. Continue to monitor clinically for signs of active GI bleeding. 3. Would obtain infectious stool studies on this patient given her recent antibiotic use and healthcare exposure. 4. Given her DNR status and probable ischemic colitis, no endoscopic evaluation is indicated at this time. 5. Would consider angiography and/or tagged red cell scan if she continues to bleed. We will continue to follow. Please call with any questions. Job ID: [id number]
[2019-04-30] MEDS: HYDROcodone/Acetaminophen 7.5/325 mg Tablet PO PRN (22:49)
--- NOTE | 2019-04-30 23:47 | CON ---
DATE OF CONSULTATION: 04/30/2019 REASON FOR CONSULTATION: Urosepsis. 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 This is related to her cardiomyopathy, prior CVA, and deconditioning. She was in her usual state until the day before admission when she developed weakness, change in mental status due to decreased oral intake associated with suprapubic pain. Also the report of severe constipation for many days before admission. Initial findings, temperature 101 to 102.9, O2 saturation 96, pulse 101, BP 88/49. On initial exam, the patient appeared alert and oriented x3, tachycardia, tender in the epigastric area, although in the ER exam, it is described as diffuse tenderness. Neuro examination was nonfocal. Initial labs with white cell count 11.3, hemoglobin 9.8, MCV 99, platelets 218 with 15% bands. Sodium 132, creatinine 0.79 with AST 41, albumin 3.9, urinalysis with greater than 50 wbc's. Two sets of blood cultures positive for E coli. Urine culture with yeast species less than 5000 CFUs. Urinalysis greater than 50 wbc's. Imaging included an abdomen and pelvis CT with contrast with bibasilar pulmonary atelectasis, cardiomegaly, intra and extrahepatic biliary dilatation likely post cholecystectomy state. Kidneys normal without hydronephrosis. Colon is moderately and diffusely distended with fluid and semisolid stool. Mild gaseous distention in the nondependent portions of bowel. No evidence of wall thickening or obstruction. Currently, Ms. Gallegos is in the ICU. She keeps her eyes closed and does not interact either with staff or with family members. She will open her eyes when stimulated. Complains of pain in the suprapubic area, but not in the remainder portions of her abdomen. REVIEW OF SYSTEMS: Not possible, but according to the nurse and family has not had any respiratory issues, no vomiting. She started having bleeding more recently through the rectal area with some clots. 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 SOCIAL HISTORY: Never smoker. No alcoholic beverage use. ALLERGIES: NONE. MEDICATIONS: At home; 1. [place]. 2. Metoprolol. 3. Gabapentin. 4. Pantoprazole. 5. Vitamin D. 6. Levothyroxine. 7. Promethazine. 8. Oxybutynin. 9. B12. 10. Colace. 11. Amitriptyline. 12. Amiodarone. 13. Furosemide. 14. Plavix. 15. Myrbetriq. PHYSICAL EXAMINATION: VITAL SIGNS: T-max 102.5, 2 days ago she was defervesced since BP 170/114, pulse 75, respiratory rate 18, O2 saturation 100. SKIN: Previous stage IV pressure ulceration in the right ischial area, which is in process of healing. Apparently, she has a central line in the right subclavian region. Pichardo catheter in place, which was positive the first day of 1000 mL and then negative today of 600. No lymphadenopathy. Some element of temporal wasting, chronically ill appearing. Ocular movements are conjugate. Sclerae are white. Pupils are equal. Conjunctivae normal. Oral cavity with dry oral mucosa. Few remaining teeth. NECK: Supple. No jugular venous distention. LUNGS: With basilar inspiratory crackles. HEART: S1, S2 with irregular rate with a soft aortic murmur. [place] impulse is not displaced. ABDOMEN: Soft with mild distention. Tenderness in the lower quadrants mostly. No guarding. Bowel sounds are diminished. MUSCULOSKELETAL: Atrophy of musculature with no evidence of edema. Pulses 1+ in dorsalis pedis. Plantar responses are flexor. No clonus. She is drowsy, arousable, but unable to provide a history or answer questions other than very limited yes and no replies. LATEST LABORATORY DATA: White cell count is at 12.4, hemoglobin 7.5 and 8.2, platelets were 218 down to 21,000, neutrophils 75. Chest x-ray; no pneumothorax, diminished lung volumes. ASSESSMENT: 1. Likely ischemic cardiomyopathy, atrial fibrillation with automatic implantable cardioverter-defibrillator in place. 2. 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 3. Functional impairment. 4. Malnutrition. 5. Change in mental status with bacteremia due to Escherichia coli. 6. Chronic constipation with chronic opioid therapy. 7. Distention of colon with fluid and bright red blood per rectum. 8. Developing thrombocytopenia. DISCUSSION: The differential diagnosis includes urinary tract infection with bacteremia secondary to chronic indwelling Pichardo catheter; colitis is less likely, but needs to be ruled out with proper studies including C difficile in stool; thrombocytopenia, likely consumptive due to the bacteremia and maybe some element of disseminated intravascular coagulation; ischemic colitis is a concern in view of the bright red blood per rectum and colon findings as well as risk factors. We will switch her to ceftriaxone from meropenem in view of the susceptibility results. Heparin has been discontinued. Stool studies. We will contact her urologist to evaluate prior results of cystoscopy and other functional studies of her urinary tract. Job ID: [id number]
[2019-05-01] MEDS: Morphine 4 MG/ML VIAL SLOW IVP PRN (00:30)
[2019-05-01] MEDS: Sodium Chloride 0.9% 1,000 ML IV SCH (00:38)
[2019-05-01] MEDS: Morphine 2 MG/ML SYRINGE SLOW IVP SCH ×3 (01:46→06:06)
[2019-05-01] MEDS: HYDROcodone/Acetaminophen 7.5/325 mg Tablet PO PRN (02:50)
[2019-05-01 04:30] LABS: Band 8 % (5-11); Hemoglobin 7.4 g/dL (12.0-16.0); Lymphocytes 6 % (21-51); MDiff Complete? YES; Mean Corpuscular HGB CONC 33.1 g/dL (32.0-36.0); Mean Corpuscular Hemoglobin 33.2 pg (27.0-31.0); Mean Platelet Volume 9.1 fL (7.4-10.4); Metamyelocyte 1 % (0-0); Monocytes 11 % (0-10); Myelocyte 1 % (0-0); Neutrophil 73 % (42-75); Platelet Count 36 thou/uL (130-400); Platelet Morphology Comment Appears Decreased; Red Blood Cell (RBC) Count 2.23 mill/uL (4.20-5.40); White Blood Cell (WBC) Count 10.4 thou/uL (4.8-10.8)
[2019-05-01 04:42] LABS: Anion Gap 16 mmol/L (10-20); BUN (Urea Nitrogen) 26 mg/dL (9.8-20.1); Calc. Creatinine Clearance 76 mL/min (70-130); Calcium 8.5 mg/dL (7.8-10.44); Carbon Dioxide 23 mmol/L (23-31); Chloride 98 mmol/L (98-107); Estimated GFR-MDRD Greater than 90; Glucose 90 mg/dL (83-110); Sodium 133 mmol/L (136-145)
[2019-05-01] MEDS: MEROPENEM 1 GM/50 ML 1 GM in Premix Bag 1 BAG IVPB SCH ×2 (06:05→13:10)
--- NOTE | 2019-05-01 08:21 | PRG ---
DATE OF SERVICE: 05/01/2019 SUBJECTIVE: This morning, she is sedated on morphine. Apparently, was given scheduled medication last night. She has had multiple issues over the last 24 hours having apparently ischemic colitis, seen by GI. OBJECTIVE: VITAL SIGNS: Blood pressure 179/89, pulse 119, respiratory rate 18, saturations 100%. CHEST: No wheezing or crackles. CARDIAC: Normal S1 and S2. No gallops. ABDOMEN: No masses. LABORATORY DATA: Platelet count of 36,000. She was transfused yesterday apparently a packed cells and blood. H and H 7 and 24, white count 10,000. She has some bloody stool this morning. E. coli sepsis on meropenem. ASSESSMENT: 1. Hypotension, resolved. 2. ischemic colitis. 3. Thrombocytopenia. 4. Supraventricular tachycardia. PLAN: She can be transferred out of the ICU. Comfort care. Family wants prior to care to see the patient. We will follow. Job ID: [id number] MTDD
[2019-05-01] MEDS: Oxybutynin ER 5 MG TAB PO SCH (10:35)
[2019-05-01] MEDS: Levothyroxine Sodium 50 MCG TAB PO SCH (10:37)
[2019-05-01] MEDS: Metoprolol Tartrate 25 MG TAB PO SCH (10:37)
[2019-05-01] MEDS: Gabapentin 300 MG CAP PO SCH (10:37)
[2019-05-01] MEDS: Amiodarone 200 MG TAB PO SCH (10:37)
[2019-05-01] MEDS: Ferrous Sulfate 325 MG TAB PO SCH (10:37)
[2019-05-01] MEDS: Cyanocobalamin (Vitamin B-12) 1,000 MCG TAB PO SCH (10:38)
[2019-05-01] MEDS: Amitriptyline HCl 25 MG TAB PO SCH (10:38)
[2019-05-01] MEDS: hydrALAZINE 20 MG/ML VIAL SLOW IVP PRN ×2 (10:47→16:40)
[2019-05-01] MEDS: Morphine 2 MG/ML SYRINGE SLOW IVP PRN ×3 (11:12→17:21)
--- NOTE | 2019-05-01 12:38 | PDOC.PALCO ---
Palliative Care Consult - Consult Details Requesting Physician: Dr Goldstein Reason for Consult: goals of care, family support Family Members Present: Curtis, three of the sons and daughter - Pertinent HPI 83 year old female who was noted by family to have a significant increase in weakness and altered mental status at home and they called 911. No identified triggers for weakness or alleviating factors. Patient was evaluated and admitted secondary to uti and st-elevation. Has had continued decline in the IMCU, Palliative care consult for goals of care. - Pertinent PMH a fib, pacemaker placed, indewlling mora cath, hypothyroid,. - Social History Smoking Status: Never smoker Smoking: no tobacco exposure Alcohol Use: none Drug Use History: none Living Situation: - Medications MAR Reviewed: Yes - Allergies Allergies/Adverse Reactions: Allergies Allergy/AdvReac Type Severity Reaction Status Date / Time No Known Allergies Allergy Verified 04/28/19 06:39 - Subjective Patient non responsive, ROS: Negative as patient not able to respond. - Objective Vital Signs: Vital Signs - Most Recent Temp Pulse Resp BP Pulse Ox 98.7 F 121 H 201/101 H 99 05/01/19 07:00 05/01/19 09:07 05/01/19 09:07 05/01/19 09:07 Palliative Performance Scale: 20 - Physical Exam Deviation from normal: Ill appearing, pallor, shallow respirations, HEENT: moist MMs Deviation from normal: diminshed to bases Gastrointestinal: soft, non-tender Deviation from normal: no purposeful movment at time of assessment Deviation from normal: obtunded at time of assessment Deviation from normal: brusing, fragile skin, poor turgor, pallor - Problem List (1) Palliative care encounter Code(s): Z51.5 - ENCOUNTER FOR PALLIATIVE CARE Current Visit: Yes Status: Acute (2) Physical deconditioning Code(s): R53.81 - OTHER MALAISE Current Visit: Yes Status: Acute (3) Sepsis Code(s): A41.9 - SEPSIS, UNSPECIFIED ORGANISM Current Visit: Yes Status: Acute - Plan/Recommendations Plan: Extensive family meeting. Life review with and his relationship with , over 50 years. and children shared patient wishes that she did not want to suffer. Family asked about Hospice and after discussion decided to seek hospice services. Wish is to take the patient home and allow her end of life to be in her residence. Choice letter signed for [facility]. Rebekah Christie RNrivet tosser also present for family meeting. Dr Up and Dr Goldstein notified as well as MARIA ELENA Tolliver. [90] minutes spent on this encounter with >50% of the time in counseling and coordination of care. Thank you for this very appropriate consult.
--- NOTE | 2019-05-01 13:08 | PRG ---
DATE OF SERVICE: 05/01/2019 SUBJECTIVE: Ms. Gallegos's status has worsened over the last several days. She has developed ischemic bowel in addition to thrombocytopenia. She is not nearly as alert as she has been over the last several days. Palliative Care has been consulted. OBJECTIVE: GENERAL: Somnolent and somewhat follows commands. VITAL SIGNS: Heart rate has been stable. Blood pressure is markedly elevated. Heart rate 98, blood pressure 192/108, respirations 20. NEUROLOGIC: The patient is alert and oriented x3 with no focal neurologic deficits. HEENT: Sclerae without icterus. Mouth has moist mucous membranes with normal pallor. NECK: No JVD. Carotid upstroke brisk. No bruits bilaterally. LUNGS: Clear to auscultation with unlabored respirations. BACK: No scoliosis or kyphosis. CARDIAC: Regular rate and rhythm with normal S1 and S2. No S3 or S4 noted. No significant rubs, murmurs, thrills, or gallops noted throughout the precordium. PMI is not displaced. There is no parasternal heave. ABDOMEN: Soft, nontender, nondistended. No peritoneal signs present. No hepatosplenomegaly. No abnormal striae. EXTREMITIES: 2+ femoral and 2+ dorsalis pedis pulses. No cyanosis, clubbing, or edema. SKIN: No gross abnormalities. PERTINENT LABORATORY DATA: Hemoglobin 7.4, platelet count of 36, which is up from 21,000. IMPRESSION: 1. Atrial fibrillation. 2. Sepsis. 3. Thrombocytopenia. 4. Ischemic bowel. RECOMMENDATIONS: At this point, I have no further cardiac recommendations. The patient appears to have opted for hospice. The patient will likely be going home with hospice care. Heart rate appears controlled. Otherwise, I have no further recommendations. Please re-consult if changes occur. Job ID: [id number]
--- NOTE | 2019-05-01 18:40 | PDOC.HOSPP ---
- Subjective Encounter Date: 05/01/19 Encounter Time: 18:30 Subjective: f/u for ischemic colitis, sepsis and increasing somnolence. Required Morphine Sulfate IV frequently overnight and received platelet transfusion. Family deciding to pursue inpt hospice given multitude of co-morbid status and clinical deterioration. - Objective Vital Signs & Weight: Vital Signs (12 hours) Temp Pulse Pulse Pulse BP BP BP 05/01/19 17:35 05/01/19 16:40 100 183/99 H 05/01/19 13:00 98.4 F 05/01/19 12:00 05/01/19 09:07 121 H 126 H 201/101 H 176/104 H 05/01/19 08:00 05/01/19 07:00 98.7 F Pulse Ox Pulse Ox Pulse Ox 05/01/19 17:35 96 05/01/19 16:40 05/01/19 13:00 05/01/19 12:00 97 05/01/19 09:07 99 100 05/01/19 08:00 100 05/01/19 07:00 Weight Weight 132 lb 4.438 oz Most Recent Monitor Data Heart Rate from ECG 115 NIBP 156/80 NIBP BP-Mean 105 Respiration from ECG 38 SpO2 95 I&O: 04/30/19 05/01/19 05/02/19 06:59 06:59 06:59 Intake Total 3000 1707 651 Output Total 3645 1545 1705 Balance -645 162 -1054 Result Diagrams: 05/01/19 04:00 05/01/19 04:00 Additional Labs: Microbiology 04/30/19 07:30 Stool - Unknown Stool Occult Blood ([facility]OS[facility]) - Final 04/28/19 00:50 Venous blood - Left Arm Blood Culture - Final Escherichia coli 04/28/19 00:44 Venous blood - Right Arm Blood Culture - Final Escherichia coli Laboratory Tests 04/28/19 04/28/19 04/28/19 00:44 00:44 00:44 WBC 11.3 H Hgb 9.8 L Plt Count 218 Band Neuts % (Manual) 15 H Sodium Lactic Acid 1.8 Troponin I 0.231 H Cortisol 04/28/19 04/28/19 04/28/19 04:13 07:23 11:15 WBC Hgb Plt Count Band Neuts % (Manual) Sodium Lactic Acid Troponin I 0.237 H 0.257 H Cortisol 45.30 04/29/19 04/29/19 04/30/19 04:13 04:13 05:20 WBC 21.9 H 12.4 H Hgb 8.1 L 7.5 L Plt Count 127 L 32 L Band Neuts % (Manual) 24 H 9 Sodium 131 L Lactic Acid Troponin I Cortisol Hospitalist ROS - Medication Medications: Active Medications Generic Name Dose Route Start Last Admin Trade Name Freq PRN Reason Stop Dose Admin Hydralazine HCl 10 mg 05/01/19 09:58 05/01/19 16:40 Apresoline SLOW IVP 10 mg Q4H PRN Administration SBP >170 Meropenem 1 gm/ Device 50 mls @ 100 mls/hr 04/28/19 14:00 05/01/19 13:10 IVPB 50 mls Q8HR JOEL Administration Norepinephrine Bitartrate 8 mg 250 mls @ 0 mls/hr 04/28/19 13:15 04/28/19 15: 19 / Sodium Chloride IVPB 250 mls INF JOEL Administration Protocol Titrate Sodium Chloride 1,000 mls @ 50 mls/hr 04/29/19 08:00 05/01/19 00:38 Normal Saline 0.9% IV 1,000 mls .Q20H JOEL Administration Morphine Sulfate 2 mg 05/01/19 07:55 05/01/19 17:21 Morphine SLOW IVP 2 mg Q2H PRN Administration Anxiety Sodium Chloride 10 ml 04/28/19 09:00 05/01/19 10:47 Flush - Normal Saline IVF 10 ml Q12HR JOEL Administration - Exam General Appearance: ill appearing Eye: anicteric sclera ENT: normocephalic atraumatic, no oropharyngeal lesions, dry oral mucosa Neck: supple, symmetric, no JVD, no thyromegaly, no lymphadenopathy Heart: RRR, no murmur, no gallops, no rubs, normal peripheral pulses Respiratory: CTAB, no wheezes, no rales, no ronchi Gastrointestinal: soft, non-distended, normal bowel sounds, tender to palpation Extremities: no cyanosis Musculoskeletal: generalized weakness Psychiatric: somnolent, lethargic Hosp A/P (1) Ischemic colitis Code(s): K55.9 - VASCULAR DISORDER OF INTESTINE, UNSPECIFIED Status: Acute Plan: Conservative mgmt, IV Morphine Sulfate, Meropenem IV (2) Septic shock Code(s): A41.9 - SEPSIS, UNSPECIFIED ORGANISM; R65.21 - SEVERE SEPSIS WITH SEPTIC SHOCK Status: Acute Plan: Secondary to E. coli bacteremia (3) E coli bacteremia Code(s): R78.81 - BACTEREMIA Status: Acute Plan: Continue Meropenem (4) Thrombocytopenia Code(s): D69.6 - THROMBOCYTOPENIA, UNSPECIFIED Status: Acute Plan: Multifactorial including sepsis/ischemic colitis (5) Urinary tract infection Status: Acute (6) Macrocytic anemia Code(s): D53.9 - NUTRITIONAL ANEMIA, UNSPECIFIED Status: Acute (7) Hyponatremia Code(s): E87.1 - HYPO-OSMOLALITY AND HYPONATREMIA Status: Chronic - Plan plan discussed w/ family, continue antibiotics, clinical social work therapist, respiratory therapy Consults: Hospice Transition to inpt hospice care Comfort measures Pain control with Morphine Sulfate 4mg IV q4h prn Transfer to Oncology unit Appreciate Palliative/hospice assistance
[2019-05-01 18:41] VITALS: BP 176/84; TEMP 97.1
[2019-05-01] MEDS ORDERED: Lorazepam 2 MG/ML VIAL SLOW IVP PRN (19:00)
--- NOTE | 2019-05-01 21:22 | DIS ---
DATE OF ADMISSION: 04/28/2019 DATE OF DISCHARGE: 05/01/2019 DISCHARGE DIAGNOSES: 1. Ischemic colitis. 2. Septic shock secondary to Escherichia coli bacteremia. 3. Escherichia coli bacteremia. 4. Thrombocytopenia, multifactorial. 5. Urinary tract infection with E coli. 6. Macrocytic anemia. 7. Hyponatremia. CONSULTATIONS: 1. Dr. Candelario with Cardiology Service. 2. Dr. Ba Devi with Infectious Disease Service. 3. Dr. Powers with GI Service. 4. Dr. Goldstein with Pulmonary Critical Care Service. 5. Dr. Mckinley with General Surgery Service. PERTINENT LABORATORY AND X-RAY FINDINGS: Sodium ranged between 131 to 133. Troponin I ranged between 0.231 to 0.257. CBC showed a white blood cell count ranging between 10.4 to 21.9, hemoglobin ranged between 7.4 to 9.8, platelet count ranged between 21 to 218. Blood cultures x2 dated 04/28/2019, positive for E coli. C difficile antigen and toxin dated 04/30/2019, negative. Stool culture dated 04/30/2019, showed normal enteric bisi. Stool Hemoccult dated 04/30/2019, negative x1. CT of the abdomen and pelvis dated 04/28/2019, showed extensive dilation of the colon due to fluid and stool. Portable chest x-ray dated 04/28/2019, showed no acute cardiopulmonary process. HOSPITAL COURSE: The patient was initially admitted to the Critical Care Unit after presenting with generalized weakness and altered mental status. The patient with chronic indwelling suprapubic catheter, presenting with evidence of sepsis with suspected urinary tract source. The patient was initially placed on broad-spectrum IV antibiotic therapy after concern for infectious process from urinary source. The patient was also given IV fluids in addition required Levophed for pressor support. The patient developed atrial fibrillation with rapid ventricular response in the context of sepsis and was given IV fluids and Cardizem. The patient continued on broad-spectrum antibiotic therapy and evaluated by the Infectious Disease Service. The patient underwent stool study evaluation with negative results as stated previously. Blood culture results were positive 2/2 samples for E coli confirming bacteremia. The patient clinically improved transiently and then clinically deteriorated with worsening abdominal pain and passage of hematochezia. The patient was diagnosed with ischemic colitis and evaluated by the GI Service. No specific intervention was recommended other than IV antibiotic therapy and general supportive management. The patient was also noted with thrombocytopenia necessitating transfusion of platelets and discontinuation of subcutaneous Lovenox. Likely of multifactorial process exacerbated by sepsis and ischemic colitis. Due to the patient's multitude of comorbid status and clinical deterioration despite aggressive intervention, the family met with hospice services and decided to pursue inpatient hospice care. The patient overall will transition to hospice care on 05/01/2019. I have examined the patient at the time of discharge and discussed disposition with the family at the bedside. CURRENT MEDICATIONS: 1. Acetaminophen 650 mg per rectum q.4 hours p.r.n. 2. Hydralazine 10 mg IV q.4 hours p.r.n. systolic blood pressure greater than or equal to 170. 3. Ativan 1 mg IV push q.6 hours p.r.n. 4. Meropenem 1 g IV q.8 hours. 5. Morphine sulfate 2 mg IV push q.2 hours p.r.n. 6. Zofran 4 mg IV q.6 hours p.r.n. FOLLOWUP: The patient to transition to inpatient hospice care with [facility]. CONDITION ON DISCHARGE: Guarded. ACTIVITY: Bedrest. DIET: N.p.o. CODE STATUS: Do not attempt resuscitation. DISPOSITION: Transfer to inpatient hospice with [facility]. TIME SPENT: Total time preparing and coordinating discharge, 33 minutes. Job ID: [id number]
[2019-05-02 10:11] LABS: Heparin-Induced Ab (HITA) 0.194 OD (0.000-0.400)
--- NOTE | 2019-05-03 09:56 | PQF ---
MARSHALL SANTOS CHARLES DO [id number] CLINICAL DOCUMENTATION CLARIFICATION FORM: POST DISCHARGE Addendum to original discharge summary date: ____ Late entry note date: __ DATE: 05-03-2019 ATTN:Stephen Bradford Please exercise your independent, professional judgment in responding to the clarification form. Clinical indicators are provided on the bottom of this form for your review Can you please specify if the patient chronic suprapubic catheter was the cause of Sepsis with septic shock? Please check appropriate box(s): [ x ] Sepsis due to UTI is a complication of chronic suprapubic catheter [ ] Sepsis due to UTI is not complication of chronic suprapubic catheter [ ] Other diagnosis please specify: [ ] Unable to determine CLINICAL INDICATORS: HP 04/[address] Hill Urinary tract infection-patient has positive UA PN 04/[address] Goldstein Blood culture growing E coli PN 04/29pg1 Dr. Goldstein Urosepsis rare Ecoli PN 04/[address] Up Septic shock secondary to Ecoli bacteremia from likely indwelling suprapubic catheter in conjunction with colitis DS 05/[address] Up chronic indwelling suprapubic catheter presenting with evidence of sepsis with suspected urinary tract source RISK FACTORS: PN Dr. 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 Hill 83 years old female TREATMENT: NOV 10- Vasopressor IV NOV 10- IV Fluids NOV 10 -Zosyn IV Blood culture Collected 04/28 CT pelvis/abdomen (This form is maintained as a part of the permanent medical record) 2014 [employer], [facility]. All Rights Reserved Grisel [email or web address] [not provided] MTDD
== END 2019-05-01 19:43 | disposition hospice, inpatient (51) | DRG 698 ==
LOC: ERS 00:33 → ONC 05:09 → IMCU/EMU 05:40 → CCU 14:09 → ONC 05-01 18:21
PROVIDERS: ADMIT Hospitalist; ATTEND Hospitalist
PROC: 02HV33Z Insertion of Infusion Device into Superior Vena Cava, Percutaneous Approach (ICD-10-PCS; principal; 2019-04-28)
PROC: B548ZZA Ultrasonography of Superior Vena Cava, Guidance (ICD-10-PCS; 2019-04-28)
PROC: 3E033XZ Introduction of Vasopressor into Peripheral Vein, Percutaneous Approach (ICD-10-PCS; 2019-04-28)
PROC: 3E0234Z Introduction of Serum, Toxoid and Vaccine into Muscle, Percutaneous Approach (ICD-10-PCS; 2019-04-28)
DX: T83.518A Infection and inflammatory reaction due to other urinary catheter, initial encounter (principal); A41.51 Sepsis due to Escherichia coli [E. coli]; R65.21 Severe sepsis with septic shock; N39.0 Urinary tract infection, site not specified; E87.1 Hypo-osmolality and hyponatremia; I47.1 Supraventricular tachycardia; I42.9 Cardiomyopathy, unspecified; E46 Unspecified protein-calorie malnutrition; K55.9 Vascular disorder of intestine, unspecified; G93.40 Encephalopathy, unspecified; Z51.5 Encounter for palliative care; Z66 Do not resuscitate; E03.9 Hypothyroidism, unspecified; N31.2 Flaccid neuropathic bladder, not elsewhere classified; K59.03 Drug induced constipation; D69.6 Thrombocytopenia, unspecified; T40.2X5A Adverse effect of other opioids, initial encounter; D53.9 Nutritional anemia, unspecified; Z79.899 Other long term (current) drug therapy; Z95.810 Presence of automatic (implantable) cardiac defibrillator; Z90.710 Acquired absence of both cervix and uterus; Y84.6 Urinary catheterization as the cause of abnormal reaction of the patient, or of later complication, without mention of misadventure at the time of the procedure; Z68.22 Body mass index [BMI] 22.0-22.9, adult; Z23 Encounter for immunization; Z96.659 Presence of unspecified artificial knee joint; Z79.82 Long term (current) use of aspirin; Z79.01 Long term (current) use of anticoagulants; G62.9 Polyneuropathy, unspecified; I48.2 Chronic atrial fibrillation; F03.90 Unspecified dementia, unspecified severity, without behavioral disturbance, psychotic disturbance, mood disturbance, and anxiety; Z86.73 Personal history of transient ischemic attack (TIA), and cerebral infarction without residual deficits
CPT/HCPCS: 36415; 36430; 71045; 74177; 80048; 80053; 81003; 81015; 82274; 82533; 82553; 83605; 84484; 85007; 85025; 85027; 86850; 86900; 86901; 87040; 87045; 87046; 87077; 87149; 87186; 87324; 87427; 87449; 96361; 96365; J0360; J1160; J1650; J1720; J2185; J2270; J2543; J3490; J7050; P9035; P9045; Q0169; Q9966

== ENCOUNTER 2019-05-01 19:45 | Inpatient (IN) | payer MEDICARE, OTHER ==
[2019-05-01] MEDS ORDERED: Ondansetron PF 4 MG/2 ML Vial IVP PRN (20:03)
[2019-05-01 20:04] VITALS: BMI 20.4
[2019-05-01] MEDS: Morphine 2 MG/ML SYRINGE SLOW IVP SCH (20:59)
[2019-05-01] MEDS: Lorazepam 2 MG/ML VIAL SLOW IVP PRN (23:18)
[2019-05-02] MEDS: Morphine 2 MG/ML SYRINGE SLOW IVP SCH ×8 (01:20→22:35)
[2019-05-02] MEDS: Sodium Chloride 0.9% 1,000 ML IV SCH (01:47)
[2019-05-02] MEDS: Lorazepam 2 MG/ML VIAL SLOW IVP PRN ×4 (04:45→18:03)
[2019-05-02] MEDS ORDERED: Lorazepam 2 MG/ML VIAL SLOW IVP PRN (14:30)
[2019-05-02] MEDS: diphenhydrAMINE 50 MG/ML VIAL IVP PRN (15:27)
[2019-05-03] MEDS: Morphine 2 MG/ML SYRINGE SLOW IVP SCH ×14 (00:27→23:59)
[2019-05-03] MEDS: Lorazepam 2 MG/ML VIAL SLOW IVP PRN ×4 (06:27→17:35)
[2019-05-03] MEDS: Sodium Chloride 0.9% 1,000 ML IV SCH (11:30)
[2019-05-03 20:01] VITALS: BP 158/93; TEMP 98.3
[2019-05-03] MEDS: diphenhydrAMINE 50 MG/ML VIAL IVP PRN (20:54)
[2019-05-04] MEDS: Morphine 2 MG/ML SYRINGE SLOW IVP SCH ×2 (02:10→03:23)
--- NOTE | 2019-05-04 14:27 | DIS ---
DATE OF ADMISSION: 05/01/2019 DATE OF DISCHARGE: 05/04/2019 SUMMARY: DATE OF ADMISSION: 05/01/2019 to inpatient hospice. DATE OF : 05/04/2019. HOSPITAL COURSE: Ms. Gallegos is an unfortunate 83-year-old female, who was admitted to the hospital on 04/28/2019 with generalized weakness and altered mental status. She was diagnosed with sepsis and was treated with IV antibiotics. She developed atrial fibrillation with RVR requiring IV fluids and IV Cardizem. She transiently improved, which was followed by worsening abdominal pain and hematochezia and was diagnosed with ischemic colitis. This was treated with supportive measures. Despite aggressive intervention, the patient continued to deteriorate and family decided on hospice, and she was switched to inpatient hospice on 05/01. She required morphine and Ativan p.r.n. on a regular basis, but she remained comfortable. She slowly deteriorated and she on 05/04/2019. Family was happy with her care. Her body was released to the home. For full details, please see chart. Job ID: [id number]
== END 2019-05-04 02:10 | disposition expired | DRG 951 ==
LOC: ONC 19:45
PROVIDERS: ADMIT Internal Medicine; ATTEND Internal Medicine
DX: Z51.5 Encounter for palliative care (principal); A41.9 Sepsis, unspecified organism; I21.A1 Myocardial infarction type 2; R65.20 Severe sepsis without septic shock; N39.0 Urinary tract infection, site not specified; E87.1 Hypo-osmolality and hyponatremia; I48.91 Unspecified atrial fibrillation; E03.9 Hypothyroidism, unspecified; Z96.659 Presence of unspecified artificial knee joint; Z98.890 Other specified postprocedural states; Z79.899 Other long term (current) drug therapy; Z79.82 Long term (current) use of aspirin; Z66 Do not resuscitate
CPT/HCPCS: J1200; J2060; J2270